=== PATIENT | female | born 1930 | race Caucasian/White ===

== ENCOUNTER 2016-09-17 11:18 | Emergency (ER) | payer OTHER ==
[~2016-09-17] VITALS: Ht 152.4 cm; Wt 54.4 kg
[~2016-09-17 11:18] MED LIST: AMLODIPINE BES2.5 M1 PO; ANTIVERT 25 MG25 MG PO; CALTRATE 600 +1 EACH PO; CENTRUM SILVER1 EAC3 PO; CHILDREN'S ASPI81 M1 PO; LIPITOR10 M1 PO; METFORMIN HCL500 M2 PO; VALIUM2 MG PO; VALSARTAN80 M1 PO
--- NOTE | 2016-09-17 11:37 | ED INFLUENZA/URI COMPLAINT ---
History of Present Illness General Chief Complaint: General Adult Stated Complaint: "NOT FEELING WELL" Source: patient, family, old records Exam Limitations: no limitations Vital Signs & Intake/Output Vital Signs & Intake/Output ED Intake and Output 09/18 0000 09/17 1200 Intake Total 1000 Output Total Balance 1000 Intake, IV 1000 Patient 120 lb Weight Weight Estimated Measurement Method Allergies Coded Allergies: NO KNOWN ALLERGIES (02/02/15) Reconcile Medications Amlodipine Besylate 2.5 MG TABLET 1 TAB PO DAILY BP (Reported) Aspirin (Children's Aspirin) 81 MG TAB.CHEW 1 TAB PO DAILY HEART HEALTH ( Reported) Atorvastatin Calcium (Lipitor) 10 MG TABLET 1 TAB PO DAILY CHOLESTEROL ( Reported) Calcium Carbonate/Vitamin D3 (Caltrate 600 + D Tablet) 600 MG-800 TABLET 2 TAB PO DAILY SUPPLEMENT (Reported) Metformin HCl (Metformin HCl ER) 500 MG TAB.ER.24 2 TAB PO 1700 DIABETES ( Reported) Multivit-Min/FA/Lycopen/Lutein (Centrum Silver Tablet) 0.4 MG-300 MCG-250 MCG TABLET 1 TAB PO DAILY VITAMIN SUPPORT (Reported) Ondansetron (Zofran Odt) 4 MG TAB.RAPDIS 1 TAB SL TID PRN nausea Valsartan 80 MG TABLET 1 TAB PO DAILY BP (Reported) Triage Note: PT TO ED C/O RUNNY NOSE, SEASONAL ALLERGY S/S SINCE THURSDAY. PT STATES THIS AM WOKE UP AND STARTED VOMITING. DENIES DIARRHEA, ABD PAIN. H/O VERTIGO, DENIES ANY DIZZINESS. PT TAKEN TO ROOM 19 VIA W/C. Triage Nurses Notes Reviewed? yes Onset: Abrupt Duration: day(s): (5), constant Timing: recent history Severity: mild, moderate Severity Numbers: 6 Prior Episodes/Possible Cause: occassional episodes No Modifying Factors: none Associated Symptoms: nasal congestion, nasal drainage, NAUSEA VOMITING X2 HPI: 86-year-old female history of diabetes presents to ER for evaluation she states for the past 5 days she's had rhinorrhea congestion which she states was improving however this morning awoke and after eating her breakfast which included 2 wall. Since also did she became nauseous and started vomiting. The patient states she is still feeling nauseous however denies abdominal pain. No diarrhea no black or bloody stools no hematemesis. Patient denies chest pain shortness of breath cough. No recenT sick contacts no recent travel or no change in her mental status per patient's son. No modifying factors she is not taken anything for her symptoms. No fever no chills (MORALES PADILLA) Past History Travel History Traveled to [place] past 21 day No Medical History Any Pertinent Medical History? see below for history Neurological: vertigo Cardiovascular: hypertension Endocrine: diabetes Surgical History Surgical History: non-contributory Psychosocial History What is your primary language [place] Tobacco Use: Never used ETOH Use: denies use Illicit Drug Use: denies illicit drug use Family History Family History, If Any: SISTER FH: HTN (hypertension) MOTHER FH: diabetes mellitus Hx Contributory? No (MORALES PADILLA) Review of Systems Review of Systems Constitutional: Reports: see HPI. All Other Systems: Reviewed and Negative Comments Review of systems: See HPI, All other systems negative. Constitutional, no chills no fever, no malaise HEENT: no sore throat no congestion, no ear pain Cardiovascular: No chest pain , no palpitation Skin: no rashes, no change in skin Respiratory: No dyspnea no cough no sputum GI: nausea vomiting, no diarrhea, : No dysuria No hematuria, Muscle skeletal: No joint pain, no joint swelling, no back pain, no neck pain, Neurologic: No numbness no headache Psych: No stress Heme/endocrine: No bruising Immunology: No lymphadenopathy (MORALES PADILLA) Physical Exam Physical Exam General Appearance: well developed/nourished, no apparent distress, alert, awake , comfortable Ears, Nose, Throat: normal ENT inspection, moist mucous membrane, hearing grossly normal Comments: Well-developed well-nourished person in no acute distress HEENT: Normal EENT exam; PERRL, EOMI, HEAD is atraumatic. moist mucous membranes. Neck: Supple, no lymphadenopathy, normal range of motion without pain or tenderness Back: Nontender, no CVA tenderness. Full range of motion Cardiovascular: Regular rate and rhythms no murmurs rubs Respiratory: Chest nontender.There were no bony deformities, no asymmetry. No respiratory distress. Patient speaking in full complete sentences. Breath sounds clear to auscultation bilaterally: NO W/R/R Abdomen: Soft, nontender nondistended, no appreciable organomegaly. Normal bowel sounds. No rebound/guarding, Extremity: No edema, full range of motion of extremities Neuro: Alert oriented x3, motor sensory normal,There were no obvious focal neurologic abnormalities. Skin: No appreciable rash on exposed skin, skin is warm and dry. Psych: Mood and affect is normal, memory and judgment is normal. Core Measures Severe Sepsis Present: No Septic Shock Present: No (MORALES PADILLA) Progress Differential Diagnosis: influenza, pneumonia, pharyngitis, sinusitis, ELECTROLYTE ABNORMALITY HYPERGLYCEMIA dka ACUTE mi VIRAL SYNDROME GASTROENTERITIS Plan of Care: Orders Procedure Date/time Status EKG 09/17 1147 Active Saline Lock 09/17 1146 Active FingerStick- Glucose 09/17 1146 Active TROPONIN LEVEL 09/17 1146 Complete COMPREHENSIVE METABOLIC PANEL 09/17 1146 Complete CBC WITHOUT DIFFERENTIAL 09/17 114 Complete Laboratory Tests 09/17/16 1216: Anion Gap 12, Estimated GFR > 60, BUN/Creatinine Ratio 30.0 H, Glucose 172 H, Calcium 9.6, Total Bilirubin 0.5, AST 24, ALT 29, Alkaline Phosphatase 78, Troponin I < 0.01, Total Protein 7.7, Albumin 4.6, Globulin 3.1, Albumin/ Globulin Ratio 1.5, CBC w Diff NO MAN DIFF REQ, RBC 4.47, MCV 87.6, MCH 29.9, RDW 13.8, MPV 8.2, Gran % 81.8 H, Lymphocytes % 10.2 L, Monocytes % 7.0, Eosinophils % 0.3, Basophils % 0.7, Absolute Granulocytes 5.5, Absolute Lymphocytes 0.7 L, Absolute Monocytes 0.5, Absolute Eosinophils 0, Absolute Basophils 0, PUBS MCHC 34.2 Labs ordered patient acute IV fluids Zofran, appears in no apparent distress at this time case discussed with Dr. SEGOVIA AGREES WITH PLAN 09/17/2016 1:17:38 PM discussed with patient at length all of her lab results she is feeling improved of vomiting here she is tolerant by mouth challenge I discussed with the patient at length all of their results. I had an extensive conversation regarding need for close follow up with their primary care physician this week as well as return precautions. I answered all of their questions, they feel comfortable with the plan and follow-up care. I discussed the medications that they will receive with the patient. I gave them signs and symptoms that could indicate an adverse reaction. I have advised them to limit their activities until they can see how they respond to the medication. (MORALES PADILLA) Initial ED EKG: normal intervals, normal p-waves, normal QRS complex, normal sinus rhythm (MORALES PADILLA) Departure Departure Time of Disposition: 1310 Disposition: HOME OR SELF CARE Condition: Stable Clinical Impression Primary Impression: Nausea & vomiting Referrals: RAMON VASQUEZ MD (PCP/Family) Additional Instructions: zofran if needed for nausea. FOLLOW up with your pmd this week. bland diet, clear liquids, advance diet as tolerated. return to the ER with any concerns or worsening of your symptoms. this was sent to [facility]. Departure Forms: Customer Survey General Discharge Information Prescriptions: Current Visit Scripts Ondansetron (Zofran Odt) 1 TAB SL TID PRN nausea #10 TAB (MORALES PADILLA) PA/RATE SUPERVISOR Co-Sign Statement Statement: ED Attending supervision documentation- x I saw and evaluated the patient. I have also reviewed all the pertinent lab results and diagnostic results. I agree with the findings and the plan of care as documented in the PA's/RATE SUPERVISOR's documentation. [] I have reviewed the ED Record and agree with the PA's/RATE SUPERVISOR's documentation. [] Additions or exceptions (if any) to the PAs/RATE SUPERVISOR's note and plan are summarized below: [] (JULIETTE ÁLVAREZ,SOLANGE)
[2016-09-17 12:25] LABS: ABSOLUTE BASOPHIL COUNT 0 /CUMM (0.0-0.2); ABSOLUTE EOSINOPHIL COUNT 0 /CUMM (0.0-0.7); ABSOLUTE GRANULOCYTE CT 5.5 /CUMM (1.4-6.5); ABSOLUTE LYMPH COUNT 0.7 /CUMM (1.2-3.4); ABSOLUTE MONOCYTE COUNT 0.5 /CUMM (0.10-0.60); BASOPHIL % 0.7 % (0.0-2.0); EOSINOPHIL % 0.3 % (0-5); GRANULOCYTE % 81.8 % (42.2-75.2); HEMATOCRIT 39.2 % (37-47); MEAN CORPUSCULAR HGB 29.9 PG (27.0-31.0); MEAN CORPUSCULAR HGB CONC 34.2 G/DL (33.0-37.0); MEAN CORPUSCULAR VOLUME 87.6 FL (81.0-99.0); MEAN PLATELET VOLUME 8.2 FL (7.4-10.4); PLATELET COUNT 236 /CUMM (130-400); RBC DISTRIBUTION WIDTH 13.8 % (11.5-14.5); RED BLOOD CELL CT 4.47 /CUMM (4.20-5.40); WHITE BLOOD CELL COUNT 6.8 /CUMM (4.8-10.8)
[2016-09-17] MEDS ORDERED: ZOFRAN ODT4 M1 SL (13:11)
[2016-09-17 13:38] VITALS: BP 172/71
== END 2016-09-17 13:39 ==
LOC: ERH 11:18
PROVIDERS: Physician Assistant Medical
DX: R11.2 Nausea with vomiting, unspecified (principal)
CPT/HCPCS: 93005; 93010; 96374; J2405

== ENCOUNTER 2017-12-09 22:51 | Emergency (ER) | payer OTHER ==
[~2017-12-09] VITALS: Ht 152.4 cm; Wt 53.1 kg
[~2017-12-09 22:51] MED LIST changes: +ZOFRAN ODT4 M1 SL
--- NOTE | 2017-12-09 23:45 | ED AMS/SEIZURE/WEAK/DIZZY ---
History of Present Illness General Chief Complaint: General Adult Stated Complaint: BIBA WITH NOT FEELING RIGTH Source: patient, family, old records, EMS Exam Limitations: no limitations Vital Signs & Intake/Output Vital Signs & Intake/Output Vital Signs Date Time Temp Pulse Resp B/P B/P Pulse O2 O2 Flow FiO2 Mean Ox Delivery Rate 12/09 2259 97.7 79 18 183/86 98 ED Intake and Output 12/10 0000 12/09 1200 Intake Total 0 Output Total Balance 0 Intake, Oral 0 Patient 117 lb Weight Weight Reported by Patient Measurement Method Allergies Coded Allergies: NO KNOWN ALLERGIES (02/02/15) Reconcile Medications Amlodipine Besylate 2.5 MG TABLET 1 TAB PO DAILY BP (Reported) Aspirin (Children's Aspirin) 81 MG TAB.CHEW 1 TAB PO DAILY HEART HEALTH ( Reported) Atorvastatin Calcium (Lipitor) 10 MG TABLET 1 TAB PO DAILY CHOLESTEROL ( Reported) Calcium Carbonate/Vitamin D3 (Caltrate 600 + D Tablet) 600 MG-800 TABLET 2 TAB PO DAILY SUPPLEMENT (Reported) Meclizine HCl 25 MG TABLET 1 TAB PO TIDPRN PRN dizziness Metformin HCl (Metformin HCl ER) 500 MG TAB.ER.24 1 TAB PO 1700 DIABETES ( Reported) Multivit-Min/FA/Lycopen/Lutein (Centrum Silver Tablet) 0.4 MG-300 MCG-250 MCG TABLET 1 TAB PO DAILY VITAMIN SUPPORT (Reported) Scopolamine 1 MG/3 DAY PATCH.TD.3 1 PATCH TOP Q72 PRN dizziness Valsartan 80 MG TABLET 1 TAB PO DAILY BP (Reported) Core Measure Meds Pre-Hospital aspirin Triage Note: PT BIBA FROM HOME S/P EPISODE OF "NOT FEELING RIGHT IN MY HEAD. I CAN'T REALLY EXPLAIN IT". STATES IT WAS NOT DIZZINESS AND DENIES FEELING LIKE ROOM WAS SPINING. HX VERTIGO. PT IS A+OX4 AND RESPONDING APPROPRIATELY. NO OTHER NEUROLIC SYMPTOMS PRESENT. Triage Nurses Notes Reviewed? yes Onset: Yesterday Duration: day(s):, gone now, intermittent Timing: recent history Injury Environment: home Severity: mild, moderate Modifying Factors: Improves With: rest. Worsens With: movement. LMP (ages 10-50): post menopausal : No Patient currently breastfeeds: No HPI: 1 day prior to admission patient complains of unsteady gait feeling off balance. Prior to admission while watching TV she complained of visual changes lightheadedness that is now resolved. She denies fever chills nausea vomiting diarrhea abdominal pain chest pain shortness breath headache dysuria rash bleeding. Past History Travel History Traveled to [place] past 21 day No Medical History Any Pertinent Medical History? see below for history Neurological: vertigo EENT: NONE Cardiovascular: hypertension Respiratory: NONE Gastrointestinal: NONE Hepatic: NONE Renal: NONE Musculoskeletal: NONE Psychiatric: NONE Endocrine: diabetes Blood Disorders: NONE Cancer(s): NONE STAGE ELECTRICIAN/Reproductive: NONE History of MRSA: No History of VRE: No History of CDIFF: No Surgical History Surgical History: non-contributory Psychosocial History What is your primary language Mohawk Tobacco Use: Never used Family History Family History, If Any: SISTER FH: HTN (hypertension) MOTHER FH: diabetes mellitus Hx Contributory? No Review of Systems Review of Systems Constitutional: Reports: see HPI, malaise. EENTM: Reports: no symptoms. Respiratory: Reports: no symptoms. Cardiovascular: Reports: no symptoms. GI: Reports: no symptoms. Genitourinary: Reports: no symptoms. Musculoskeletal: Reports: no symptoms. Skin: Reports: no symptoms. Neurological/Psychological: Reports: no symptoms. Hematologic/Endocrine: Reports: no symptoms. Immunologic/Allergic: Reports: no symptoms. All Other Systems: Reviewed and Negative Physical Exam Physical Exam General Appearance: well developed/nourished, alert, awake, anxious, comfortable Head: atraumatic, normal appearance Eyes: Bilateral: normal appearance, PERRL, EOMI, other (Nystagmus). Ears, Nose, Throat: normal pharynx, normal ENT inspection, hearing grossly normal Neck: normal inspection, supple, full range of motion, no midline tenderness Respiratory: normal breath sounds, chest non-tender, no respiratory distress, quiet respiration, lungs clear Cardiovascular: regular rate/rhythm, normal peripheral pulses, norml femoral pulses equa Peripheral Pulses: 4+ carotid (R), 4+ carotid (L) Gastrointestinal: normal bowel sounds, soft, non-tender, no organomegaly Back: normal inspection, normal range of motion, no vertebral tenderness Extremities: normal range of motion, no ligament instability Neurologic/Psych: no motor/sensory deficits, awake, alert, oriented x 3, normal gait, normal mood/affect, administrative resident II-XII nml as tested Reflexes: 2+: bicep (R), bicep (L). Skin: intact, normal color, warm/dry Lymphatic: no anterior cervical linda Core Measures ACS in differential dx? No CVA/TIA Diagnosis No Sepsis Present: No Sepsis Focused Exam Completed? No Progress Differential Diagnosis: benign positional vertigo, CVA/stroke, dehydration, electrolyte imbalance, hypoxia, labrynthitis Plan of Care: Orders Procedure Date/time Status TSH REFLEX 12/09 2314 Complete TROPONIN LEVEL 12/09 2314 Complete MAGNESIUM 12/09 2314 Complete COMPREHENSIVE METABOLIC PANEL 12/09 2314 Complete CBC WITHOUT DIFFERENTIAL 12/09 2314 Complete EKG 12/09 2314 Active Laboratory Tests 12/09/17 2344: Anion Gap 12, Estimated GFR > 60, BUN/Creatinine Ratio 30.0 H, Glucose 114 H, Calcium 10.0, Magnesium 2.0, Total Bilirubin 0.3, AST 26, ALT 33, Alkaline Phosphatase 69, Troponin I < 0.01, Total Protein 7.5, Albumin 4.4, Globulin 3.1, Albumin/Globulin Ratio 1.4, TSH &T3 &Free T4 Intrp 3.690, CBC w Diff NO MAN DIFF REQ, RBC 4.51, MCV 88.1, MCH 29.8, MCHC 33.8, RDW 13.7, MPV 7.9, Gran % 60.7, Lymphocytes % 25.3, Monocytes % 9.8 H, Eosinophils % 2.9, Basophils % 1.3, Absolute Granulocytes 3.5, Absolute Lymphocytes 1.5, Absolute Monocytes 0.6, Absolute Eosinophils 0.2, Absolute Basophils 0.1 Diagnostic Imaging: Viewed by Me: CT Scan. Discussed w/RAD: CT Scan. Radiology Impression: no acute abnormality Initial ED EKG: normal axis, normal intervals, normal p-waves, normal QRS complex, normal sinus rhythm, no ST T wave changes Prior EKG: unchanged Rhythm Strip: normal sinus rhythm Departure Departure Time of Disposition: 126 Disposition: HOME OR SELF CARE Condition: Stable Clinical Impression Primary Impression: Vertigo Referrals: Gabriel Barragan MD (PCP/Family) Departure Forms: Customer Survey General Discharge Information Prescriptions: Current Visit Scripts Scopolamine 1 PATCH TOP Q72 PRN dizziness #4 PATCH Meclizine HCl 1 TAB PO TIDPRN PRN dizziness #30 TAB
--- NOTE | 2017-12-09 23:48 | CT SCAN REPORT ---
EXAMINATION: CT HEAD WITHOUT CONTRAST CLINICAL INFORMATION: Vertigo. Nystagmus. Blurred vision. COMPARISON: CT head 04/17/2017 TECHNIQUE: Contiguous axial imaging was performed from the skull base to vertex without intravenous administration of contrast. DLP: 602.3 to mGy-cm FINDINGS: There is no evidence of acute intracranial hemorrhage or territorial infarction. No abnormal mass effect or midline shift is seen. Call to white matter differentiation is well preserved. No extra-axial fluid collections are identified. There is atrophy with prominence of the ventricles and the sulci and hypodensity of the periventricular white matter due to chronic small vessel ischemic disease. There is vascular calcifications of the internal carotid arteries bilaterally. The osseous structures and soft tissues are normal. The mastoid air cells and visualized portions of the paranasal sinuses are well aerated. IMPRESSION: No acute intracranial pathology.
[2017-12-09 23:54] LABS: ABSOLUTE BASOPHIL COUNT 0.1 /CUMM (0.0-0.2); ABSOLUTE EOSINOPHIL COUNT 0.2 /CUMM (0.0-0.7); ABSOLUTE GRANULOCYTE CT 3.5 /CUMM (1.4-6.5); ABSOLUTE LYMPH COUNT 1.5 /CUMM (1.2-3.4); ABSOLUTE MONOCYTE COUNT 0.6 /CUMM (0.10-0.60); BASOPHIL % 1.3 % (0.0-2.0); EOSINOPHIL % 2.9 % (0-5); GRANULOCYTE % 60.7 % (42.2-75.2); HEMATOCRIT 39.7 % (37-47); MEAN CORPUSCULAR HGB 29.8 PG (27.0-31.0); MEAN CORPUSCULAR HGB CONC 33.8 G/DL (33.0-37.0); MEAN CORPUSCULAR VOLUME 88.1 FL (81.0-99.0); MEAN PLATELET VOLUME 7.9 FL (7.4-10.4); PLATELET COUNT 252 /CUMM (130-400); RBC DISTRIBUTION WIDTH 13.7 % (11.5-14.5); RED BLOOD CELL CT 4.51 /CUMM (4.20-5.40); WHITE BLOOD CELL COUNT 5.7 /CUMM (4.8-10.8)
[2017-12-10] MEDS ORDERED: SCOPOLAMINE1 EAC1 TOP (01:15)
[2017-12-10] MEDS ORDERED: MECLIZINE HCL25 MG PO (01:15)
[2017-12-10 01:40] VITALS: BP 152/72
== END 2017-12-10 01:40 ==
LOC: ERH 22:51
PROVIDERS: Emergency Medicine
DX: R42 Dizziness and giddiness (principal); I10 Essential (primary) hypertension; E11.9 Type 2 diabetes mellitus without complications; Z79.84 Long term (current) use of oral hypoglycemic drugs
CPT/HCPCS: 93005; 93010